=== PATIENT | female | born 1965 | race Caucasian/White ===

== ENCOUNTER 2024-03-13 16:58 | Emergency (ER) | payer OTHER, SELFPAY ==
--- NOTE | 2024-03-13 17:04 | ED.GENMED ---
ED Provider Triage
<Sabrina Ybarra PA-C - Last Filed: 03/13/24 21:06>
-
Patient seen by provider in Triage?: Seen in Triage
Attestation: A medical screening examination has been initiated by a qualified medical provider. Based on the assessment performed at this time, it has been determined that an emergent medical condition may exist and the patient has been informed
that further medical evaluation and possible additional diagnostic testing may be needed.
HPI: 58yoF here with ongoing elevated blood pressure readings x 1 month. C/o nausea, chest discomfort, head pressure, and feeling fatigued today. Took a dose of her sister's valsartan today. No prior history of HTN and not on any antihypertensives.
GENERAL: Alert , in no apparent distress
EYE: No visual abnormalities.
NECK: Trachea midline
ENT: No visible abnormalities.
LUNGS: No acute respiratory distress
NEUROLOGICAL: Alert and oriented
SKIN: Skin intact. No visible changes.
MUSCULOSKELETAL: Moving extremities normally
PSYCH: Normal and appropriate interaction.
This is a medical evaluation conducted in person to initiate diagnostic evaluation and provide initial therapeutics. Please see further documentation by the treating clinician.
Cardiac labs and EKG ordered.
History of Present Illness
<Sabrina Ybarra PA-C - Last Filed: 03/13/24 21:06>
General
Chief Complaint: Chest Pain
Time Seen by Provider: 03/13/24 18:58
<Martita Sarmiento NP - Last Filed: 03/15/24 22:46>
General
Source: patient
Exam Limitations: none
Nursing documentation reviewed up to this point in time: agreed with
History of Present Illness
History of Present Illness:
Patient to ED wtih complaint of chest pain, elevated BP readings, weakness. History of tevin blood pressure. Denies fever/chills, lrecent illness. No SOB. No prior history of same
Past History
<Martita Sarmiento NP - Last Filed: 03/15/24 22:46>
Past History
ED Past Medical History: HTN and Hypothyroidism
Review of Systems
<Martita Sarmiento NP - Last Filed: 03/15/24 22:46>
Review of Systems
Allergies reviewed?: Yes
All Other Systems: ROS reviewed and negative except as documented in HPI and ROS
Constitutional: Reports no symptoms
EENT: Reports no symptoms
Respiratory: Reports no symptoms
Cardiac: Reports other (Elevated BP readings)
ABD/GI: Reports no symptoms
: Reports no symptoms
Musculoskeletal: Reports no symptoms
Skin: Reports no symptoms
Neurological: Reports weakness
Psychiatric: Reports no symptoms
Phy Exam
<Martita Sarmiento NP - Last Filed: 03/15/24 22:46>
General Physical Exam
General Presentation: well appearing and no apparent distress
General age: appears stated age
General Skin: warm and dry
General Habitus: normal
General Mental: alert
Cardiovascular Exam
Cardiovascular Exam: regular rate/rhythm and no edema
Pulmonary Exam
Pulmonary Exam: lungs clear and no respiratory distress
Musculoskeletal Exam
Musculoskeletal Exam: full ROM and neuro vasc intact
Skin Exam
Skin Exam: normal color, warm/dry and no rash
Psychiatric Exam
Psychiatric Exam: normal mood/affect
Scores
<Martita Sarmiento NP - Last Filed: 03/15/24 22:46>
Heart Score for Chest Pain Patients
STEMI patient?: No
History: Slightly or Non-Suspicious
ECG: Normal
Age: >45 - <65 years
Risk Factors: 1 or 2 Risk Factors
Troponin: </= Normal Limit
Heart Score for Chest Pain Patients: 2
Heart Score Risk: 2.5% MACE over next 6 weeks
Course
<Sabrina Ybarra PA-C - Last Filed: 03/13/24 21:06>
Orders/Labs/Results
Orders:
Orders
03/13/24 16:59
EKG [Electrocardiogram (*1)] Urgent
Reason for Study: Chest Pain
EKG- Treatment ONCE
03/13/24 17:22
Complete Blood Count/With Diff Urgent
Comprehensive Metabolic Panel Urgent
TSH Reflex To Free T4 Urgent
Comment: AD ON
Troponin I Urgent
03/13/24 19:05
Add On- LAB Urgent
Tests Added?: TSH reflex free T4
Abnormal Lab Results
03/13/24
17:22
MCHC 32.6 L g/dL
(33.0-37.0)
Abs Immat Gran (auto) 0.1 H 10^3/uL
(0-0.05)
Absolute Neuts (auto) 6.9 H 10^3/uL
(1.4-6.5)
Immature Gran % 0.7 H %
(0-0.5)
Neutrophils % 75.6 H %
(42.2-75.2)
Lymphocytes % 18.2 L %
(20.5-51.1)
Creatinine 0.5 L mg/dL
(0.6-1.0)
03/13/24 17:22
03/13/24 17:22
Vital Signs
Initial and Last Documented VS:
Initial Vital Signs
Temp Pulse Resp BP Pulse Ox
97.6 F 89 16 181/128 99
03/13/24 17:06 03/13/24 17:06 03/13/24 17:06 03/13/24 17:06 03/13/24 17:06
Last Documented Vital Signs
Temp Pulse Resp BP Pulse Ox
97.6 F 74 16 146/94 96
03/13/24 17:06 03/13/24 20:15 03/13/24 20:15 03/13/24 20:15 03/13/24 20:15
<Martita Sarmiento NP - Last Filed: 03/15/24 22:46>
Orders/Labs/Results
Orders:
Orders
03/13/24 16:59
EKG [Electrocardiogram (*1)] Urgent
Reason for Study: Chest Pain
EKG- Treatment ONCE
03/13/24 17:22
Complete Blood Count/With Diff Urgent
Comprehensive Metabolic Panel Urgent
TSH Reflex To Free T4 Urgent
Comment: AD ON
Troponin I Urgent
03/13/24 19:05
Add On- LAB Urgent
Tests Added?: TSH reflex free T4
Abnormal Lab Results
03/13/24
17:22
MCHC 32.6 L g/dL
(33.0-37.0)
Abs Immat Gran (auto) 0.1 H 10^3/uL
(0-0.05)
Absolute Neuts (auto) 6.9 H 10^3/uL
(1.4-6.5)
Immature Gran % 0.7 H %
(0-0.5)
Neutrophils % 75.6 H %
(42.2-75.2)
Lymphocytes % 18.2 L %
(20.5-51.1)
Creatinine 0.5 L mg/dL
(0.6-1.0)
03/13/24 17:22
03/13/24 17:22
Vital Signs
Initial and Last Documented VS:
Initial Vital Signs
Temp Pulse Resp BP Pulse Ox
97.6 F 89 16 181/128 99
03/13/24 17:06 03/13/24 17:06 03/13/24 17:06 03/13/24 17:06 03/13/24 17:06
Last Documented Vital Signs
Temp Pulse Resp BP Pulse Ox
97.6 F 74 16 146/94 96
03/13/24 17:06 03/13/24 20:15 03/13/24 20:15 03/13/24 20:15 03/13/24 20:15
<Martita Sarmiento NP - Last Filed: 03/15/24 22:46>
*Critical Care Note
Total Time (30-74mins, 75-104mins- exclusive of procedures): Not Applicable
ED Attending Note
<Sabrina Ybarra PA-C - Last Filed: 03/13/24 21:06>
-
Portions of this chart may have been created with voice recognition software.� Occasional wrong word or��sound alike� substitutions may have occurred due to the inherent limitations of voice recognition software.
Discharge Plan
Departure
Patient Disposition: Home (Routine Discharge)
Date of Disposition: 03/13/24
Time of Disposition: 20:23
Patient with high blood pressure during this ER visit?: Yes
Condition: Good
Discharge Problem:
Elevated blood pressure reading
Instructions: High blood pressure - ED discharge instructions
Prescriptions:
New
lisinopril 5 mg tablet
5 mg PO DAILY Qty: 14 0RF
No Action
levothyroxine 25 mcg Tablet
25 mcg PO DAILY
prednisone 1 mg Tablet
9 mg PO DAILY
celecoxib [Celebrex] 100 mg Capsule
200 mg PO BID
Simponi 50 mg/0.5 mL Pen Injector
50 mg SC [id number]
Referrals:
Lisa Sutton MD [Family Provider] - Keep scheduled appt
Interventions
Interventions:
*Risk Screen - Suicide Last Done: 03/13/24 17:06
*General Assessment Last Done: 03/13/24 17:06
*Neglect/Abuse Screening Last Done: 03/13/24 17:06
ED- Fall Risk Assessment Last Done: 03/13/24 20:38
*ED COVID-19 Vaccine History Last Done: 03/13/24 17:06
*Nursing Disposition Last Done: 03/13/24 20:38
ED- Cardiac Assessment Last Done: 03/13/24 19:45
Discharge Date and Time
Discharge Date/Time: 03/13/24 20:38
Print Language: SLOVAK
[2024-03-13 17:06] VITALS: BP 181/128
[2024-03-13 17:29] LABS: % Basophils 0.1 % (0-2); % Eosinophils 1.2 % (0-6); % Immature Granulocytes 0.7 % (0-0.5); % Lymphocytes 18.2 % (20.5-51.1); % Monocytes 4.2 % (1.7-9.3); % Neutrophils 75.6 % (42.2-75.2); Absolute Eosinophils 0.1 10^3/uL (0-0.7); Absolute Immature Granulocytes 0.1 10^3/uL (0-0.05); Absolute Lymphocytes 1.7 10^3/uL (1.2-3.4); Absolute Monocytes 0.4 10^3/uL (0.1-0.6); Absolute Neutrophils 6.9 10^3/uL (1.4-6.5); Mean Corp Hgb Conc. 32.6 g/dL (33.0-37.0); Mean Corpuscular Volume 89.2 fL (81.0-99.0); Mean Platelet Volume 9.3 fL (7.4-10.4); Nucleated Red Blood Cells % 0 %; Platelet Count 274 10^3/uL (130-400); Red Blood Cell Count 4.82 10^6/uL (4.20-5.40); Red Cell Dist. Width 13.2 % (11.5-14.5); White Blood Cell Count 9.1 10^3/uL (4.8-10.8)
[2024-03-13 17:47] LABS: ALT (SGPT) 20 U/L (0-35); AST (SGOT) 27 U/L (14-36); Albumin 4.3 g/dl (3.5-5.0); Alkaline Phosphatase 64 U/L (38-126); Blood Urea Nitrogen 15 mg/dl (7-17); Calcium 9.4 mg/dl (8.4-10.2); Carbon Dioxide 28 mmol/L (22-30); Chloride 104 mmol/L (98-107); Glucose 97 mg/dl (70-99); Potassium 4.1 mmol/L (3.5-5.1); Sodium 140 mmol/L (135-145); Total Bilirubin 0.8 mg/dl (0.2-1.3); Total Protein 7.9 g/dl (6.3-8.2); eGFR > 60.00
[2024-03-13 17:50] LABS: Troponin I < 0.012 ng/ml
[2024-03-13 19:17] VITALS: BMI 26.8
[2024-03-13 19:20] VITALS: BP 150/102
[2024-03-13 19:36] VITALS: BP 144/84
[2024-03-13 20:00] VITALS: BP 158/109
[2024-03-13 20:15] VITALS: BP 146/94
[2024-03-13 20:18] LABS: TSH Reflex To Free T4 3.22 uIU/ml (0.47-4.68)
== END 2024-03-13 20:38 | disposition home or self-care (01) ==
LOC: EMR 16:58
PROVIDERS: Physician Assistant; EMERGENCY PHYSICIAN Emergency Medicine; FAMILY PHYSICIAN Student in an Organized Health Care Education/Training Program
DX: I10 Essential (primary) hypertension (principal)
CPT/HCPCS: 99284; 80053; 84443; 84484; 85025; 93005

== ENCOUNTER 2024-03-31 17:07 | Inpatient (IN) | payer OTHER, SELFPAY ==
[2024-03-31] VITALS (7 sets, daily range): BP systolic 133–170; BP diastolic 91–109; BMI 25.8; BMI 25.6
[2024-03-31 13:27] LABS: % Basophils 0.7 % (0-2); % Eosinophils 1.1 % (0-6); % Immature Granulocytes 3.8 % (0-0.5); % Lymphocytes 14.8 % (20.5-51.1); % Monocytes 5.5 % (1.7-9.3); % Neutrophils 74.1 % (42.2-75.2); Absolute Basophils 0.1 10^3/uL (0-0.2); Absolute Eosinophils 0.2 10^3/uL (0-0.7); Absolute Immature Granulocytes 0.6 10^3/uL (0-0.05); Absolute Lymphocytes 2.3 10^3/uL (1.2-3.4); Absolute Monocytes 0.8 10^3/uL (0.1-0.6); Absolute Neutrophils 11.3 10^3/uL (1.4-6.5); Hematocrit 43.8 % (37.0-47.0); Hemoglobin 14.5 g/dL (12.0-16.0); Mean Corp Hgb Conc. 33.1 g/dL (33.0-37.0); Mean Corpuscular Hgb 28.8 pg (27.0-31.0); Mean Corpuscular Volume 86.9 fL (81.0-99.0); Mean Platelet Volume 8.9 fL (7.4-10.4); Nucleated Red Blood Cells % 0 %; Platelet Count 321 10^3/uL (130-400); Red Blood Cell Count 5.04 10^6/uL (4.20-5.40); Red Cell Dist. Width 13.2 % (11.5-14.5); White Blood Cell Count 15.2 10^3/uL (4.8-10.8)
[2024-03-31 13:40] LABS: ALT (SGPT) 15 U/L (0-35); AST (SGOT) 22 U/L (14-36); Albumin 3.9 g/dl (3.5-5.0); Alkaline Phosphatase 81 U/L (38-126); Blood Urea Nitrogen 13 mg/dl (7-17); Calcium 9.1 mg/dl (8.4-10.2); Carbon Dioxide 26 mmol/L (22-30); Chloride 97 mmol/L (98-107); Glucose 81 mg/dl (70-99); Potassium 3.6 mmol/L (3.5-5.1); Sodium 136 mmol/L (135-145); Total Bilirubin 0.5 mg/dl (0.2-1.3); Total Protein 7.5 g/dl (6.3-8.2); eGFR > 60.00
[2024-03-31 13:43] LABS: COVID-19 Antigen Negative (Negative)
[2024-03-31] MEDS: NSS 1000 IV ×3 (14:41→17:34)
[2024-03-31] MEDS: TYLENOL 1000 MG PO (14:41)
--- NOTE | 2024-03-31 14:43 | ED.GENMED ---
History of Present Illness
<Luis Angel Palma PA-C - Last Filed: 03/31/24 16:19>
General
Chief Complaint: Cold/Flu/URI Symptoms
Source: patient
Time Seen by Provider: 03/31/24 14:01
History of Present Illness
History of Present Illness:
58-year-old female with past medical history of hypothyroidism and psoriasis presenting to the emergency department for evaluation of upper respiratory symptoms, sinus congestion, cough and continued fevers with symptoms starting on March 20.
Patient started Augmentin on March 26 and continues to states she feels ill endorsing continued cough, palpitations and sinus congestion. Patient's main concern is that she has me rest as she had been on long-term prednisone use which was
recently discontinued for a medication called Simponi which she took last month and was due to receive the next injection today but due to feeling ill came to the emergency department instead. Patient had a Tmax of 101 earlier today. No known sick
contacts or recent travel. She denies any urinary symptoms, bowel changes, abdominal pain, chest pain, shortness of breath.
Past History
<Luis Angel Palma PA-C - Last Filed: 03/31/24 16:19>
Past History
ED Past Medical History: HTN, Hypothyroidism and Other (Psoriasis)
ED Past Surgical History: Orthopedic and Other
Social History
Tobacco: Non-smoker
Alcohol: None
Drug: None
Personal:
Living: with family
Review of Systems
<Luis Angel Palma PA-C - Last Filed: 03/31/24 16:19>
Review of Systems
All Other Systems: ROS reviewed and negative except as documented in HPI and ROS
Phy Exam
<Luis Angel Palma PA-C - Last Filed: 03/31/24 16:19>
Physical Exam
Physical Exam:
GENERAL: Alert , in no apparent distress, ill-appearing but nontoxic
HEAD: Normocephalic atraumatic
EYE: conjunctiva mildly injected on the right
NECK: Supple, no significant adenopathy.
ENT: o/p clr, mmm. TMs clear bilateral, mild tonsillar erythema but no exudates or edema
CARDIAC: Tachycardic rate, normal rhythm
LUNGS: Clear breath sounds bilaterally, no acute respiratory distress, no wheezes/rales/rhonchi
NEUROLOGICAL: Alert and oriented
SKIN: Warm and dry, skin intact.
MUSCULOSKELETAL: well perfused.
PSYCH: Normal and appropriate interaction.
Scores
<Luis Angel Palma PA-C - Last Filed: 03/31/24 16:19>
Heart Failure Risk
Heart Failure Risk Score: Not Applicable
Heart Score for Chest Pain Patients
STEMI patient?: Not applicable
Withdrawal Assessment of Alcohol
Withdrawal Assessment Completed?: Not applicable
Sepsis
<Luis Angel Palma PA-C - Last Filed: 03/31/24 16:19>
Sepsis Screening
Sepsis Assessment: Sepsis
Sepsis Screen
Sepsis Screen: Sepsis
Date: 03/31/24
Time: 16:19
Course
<Luis Angel Palma PA-C - Last Filed: 03/31/24 16:19>
Orders/Labs/Results
Orders:
Orders
03/31/24 12:41
Electrocardiogram (*1) Urgent
Reason for Study: Palpitations
EKG- Treatment ONCE
03/31/24 13:11
COVID-19 Antigen Urgent
Source: Nasal Swab
Complete Blood Count/With Diff Urgent
Comprehensive Metabolic Panel Urgent
Influenza A+B Rapid Molecular Urgent
JESUS Source: Nasal Swab
Specimen Description:
03/31/24 14:19
CT Chest PE Study Urgent
Comment:
Reason For Exam: fever, cough x 11 days, immunosupressed
0.9% Sodium Chloride 1000 ml [Nss] 1,000 ml IV BOLUS
Acetaminophen [Tylenol] 1,000 mg PO NOW STA
03/31/24 14:45
D-Dimer Urgent
Influenza A+B Rapid Molecular Routine
JESUS Source: [facility]
Specimen Description:
03/31/24 16:02
0.9% Sodium Chloride 1000 ml [Nss] 1,000 ml IV BOLUS
Piperacillin/Tazo 3.375 Gram [Zosyn] 3.375 gram in 50 ml IV NOW
03/31/24 16:15
Lactic Acid Q4H
Comment: CANCEL 2nd LACTIC ACID IF 1st LACTIC ACID IS LESS THAN 2
Blood Culture Q30M
JESUS Source: Blood/Venous
Specimen Description:
03/31/24 16:45
Blood Culture Q30M
JESUS Source: Blood/Venous
Specimen Description:
03/31/24 20:15
Lactic Acid Q4H
Comment: CANCEL 2nd LACTIC ACID IF 1st LACTIC ACID IS LESS THAN 2
Abnormal Lab Results
03/31/24 03/31/24
13:11 14:45
WBC 15.2 H 10^3/uL
(4.8-10.8)
Abs Immat Gran (auto) 0.6 H 10^3/uL
(0-0.05)
Absolute Neuts (auto) 11.3 H 10^3/uL
(1.4-6.5)
Absolute Monos (auto) 0.8 H 10^3/uL
(0.1-0.6)
Immature Gran % 3.8 H %
(0-0.5)
Lymphocytes % 14.8 L %
(20.5-51.1)
D-Dimer 12.10 H ug/mlFEU
(0.00-0.50)
Chloride 97 L mmol/L
(98-107)
03/31/24 13:11
03/31/24 13:11
Vital Signs
Initial and Last Documented VS:
Initial Vital Signs
Temp Pulse Resp BP Pulse Ox
98.5 F 134 16 170/109 99
03/31/24 13:03 03/31/24 13:03 03/31/24 13:03 03/31/24 13:03 03/31/24 13:03
Last Documented Vital Signs
Temp Pulse Resp BP Pulse Ox
98.5 F 101 18 136/92 97
03/31/24 13:03 03/31/24 16:00 03/31/24 15:45 03/31/24 16:00 03/31/24 15:45
Forge Press Operator consulted with Physician
Forge Press Operator consulted with physician?: Yes
Name of Physician Consulted: Ravi
<Josh Rodrigues MD - Last Filed: 03/31/24 16:03>
Orders/Labs/Results
Orders:
Orders
03/31/24 12:41
Electrocardiogram (*1) Urgent
Reason for Study: Palpitations
EKG- Treatment ONCE
03/31/24 13:11
COVID-19 Antigen Urgent
Source: Nasal Swab
Complete Blood Count/With Diff Urgent
Comprehensive Metabolic Panel Urgent
Influenza A+B Rapid Molecular Urgent
JESUS Source: Nasal Swab
Specimen Description:
03/31/24 14:19
CT Chest PE Study Urgent
Comment:
Reason For Exam: fever, cough x 11 days, immunosupressed
0.9% Sodium Chloride 1000 ml [Nss] 1,000 ml IV BOLUS
Acetaminophen [Tylenol] 1,000 mg PO NOW STA
03/31/24 14:45
D-Dimer Urgent
Influenza A+B Rapid Molecular Routine
JESUS Source: [facility]AB
Specimen Description:
03/31/24 16:02
0.9% Sodium Chloride 1000 ml [Nss] 1,000 ml IV BOLUS
Piperacillin/Tazo 3.375 Gram [Zosyn] 3.375 gram in 50 ml IV NOW
03/31/24 16:15
Lactic Acid Q4H
Comment: CANCEL 2nd LACTIC ACID IF 1st LACTIC ACID IS LESS THAN 2
Blood Culture Q30M
JESUS Source: Blood/Venous
Specimen Description:
03/31/24 16:45
Blood Culture Q30M
JESUS Source: Blood/Venous
Specimen Description:
03/31/24 20:15
Lactic Acid Q4H
Comment: CANCEL 2nd LACTIC ACID IF 1st LACTIC ACID IS LESS THAN 2
Abnormal Lab Results
03/31/24 03/31/24
13:11 14:45
WBC 15.2 H 10^3/uL
(4.8-10.8)
Abs Immat Gran (auto) 0.6 H 10^3/uL
(0-0.05)
Absolute Neuts (auto) 11.3 H 10^3/uL
(1.4-6.5)
Absolute Monos (auto) 0.8 H 10^3/uL
(0.1-0.6)
Immature Gran % 3.8 H %
(0-0.5)
Lymphocytes % 14.8 L %
(20.5-51.1)
D-Dimer 12.10 H ug/mlFEU
(0.00-0.50)
Chloride 97 L mmol/L
(98-107)
03/31/24 13:11
03/31/24 13:11
Vital Signs
Initial and Last Documented VS:
Initial Vital Signs
Temp Pulse Resp BP Pulse Ox
98.5 F 134 16 170/109 99
03/31/24 13:03 03/31/24 13:03 03/31/24 13:03 03/31/24 13:03 03/31/24 13:03
Last Documented Vital Signs
Temp Pulse Resp BP Pulse Ox
98.5 F 101 18 136/92 97
03/31/24 13:03 03/31/24 16:00 03/31/24 15:45 03/31/24 16:00 03/31/24 15:45
<Luis Angel Palma PA-C - Last Filed: 03/31/24 16:19>
MDM/Problems Addressed
Differential Diagnosis Includes:
COVID, flu, pneumonia, PE, sinusitis, otitis media, bacteremia
MDM/Problems Addressed:
58-year-old female presenting to the ER for evaluation of persistent URI-like symptoms that has been ongoing for 11 days. Has been on antibiotics for the last 5 days with no improvement. Afebrile here however did have elevated temperature at home
earlier today. Moderately tachycardic. She is in no acute respiratory distress. Patient is immunosuppressed on Simponi. Labs do reveal a leukocytosis but no bandemia. Chemistry unremarkable. COVID testing was negative and flu test inconclusive
so resent a flu test. Given patient's tachycardia and low-grade fevers combined with persistent symptoms will obtain CT of the chest rule out PE. Disposition pending
Chronic conditions affecting care: Immunosuppressed
Acute Exacerbation and/or Progression of Chronic Illness: Immunosuppressed
<Luis Angel Palma PA-C - Last Filed: 03/31/24 16:19>
*Radiology
Radiology exam reviewed: radiology read reviewed
*Pulse Oximetry
Patient hypoxic: no
*EKG
Heart Rate: 124
Rate: tachycardiac
Rhythm: sinus
Ischemia: other (ST depression V4 through V6)
*Sheet Metal Assembler And Riveter Interpretation
Rate: tachycardiac
Rhythm: sinus
*Critical Care Note
Total Time (30-74mins, 75-104mins- exclusive of procedures): Not Applicable
<Luis Angel Palma PA-C - Last Filed: 03/31/24 16:19>
Patient Management
Discussion with other providers: Hospitalist
Escalation/DeEscalation of care consider admission/obs:
Patient CT without any acute findings. Her labs do reveal a leukocytosis of 15,000 with increased immature granulocytes. CTA of the chest did not show any acute lung pathology. Given patient's persistent symptoms, immunosuppressed state, already
on oral antibiotics and not having any improvement I do feel it would be best served for the patient to be admitted for IV antibiotics and culture trending. Patient in agreement with this plan. Hospitalist team accepts for continued evaluation and
treatment.
ED Attending Note
<Luis Angel Palma PA-C - Last Filed: 03/31/24 16:19>
-
Portions of this chart may have been created with voice recognition software.� Occasional wrong word or��sound alike� substitutions may have occurred due to the inherent limitations of voice recognition software.
<Josh Rodrigues MD - Last Filed: 03/31/24 16:03>
ED Attending Note
Patient seen and examined by attending physician: Yes
I performed the substantive portion of visit, reviewed & personally made and approve the management plan that is documented in note by myself or LISA.: Yes
ED Attending Note:
58-year-old female history immunosuppression from monoclonal antibody therapy for psoriatic arthritis. Presents with ongoing sinus-like symptoms. Nasal congestion discharge fever. No cough no shortness of breath no abdominal pain no vomiting.
Has been on 5 days of Augmentin. Started to feel better but today woke up feeling much worse lethargic fever. Presented tachycardic in the 140s.
Blood pressure stable. Lungs clear and equal. Heart regular tachycardic. Regular rhythm. Abdomen nontender. Warm and dry. No rash. No petechia or purpura. Neck is supple.
Leukocytosis with bandemia. Tachycardic in the 140s and persistent tachycardia 120 after fluids. Failed outpatient treatment. Immunosuppressed. Warrants inpatient management.
Discharge Plan
Departure
Patient Disposition: Admit
Date of Disposition: 03/31/24
Time of Disposition: 16:03
Presentation/result/management discussed w/ accepting MD/DO: Hospitalist
Discharge Problem:
Acute upper respiratory infection, Immunocompromised
Prescriptions:
No Action
levothyroxine 25 mcg Tablet
25 mcg PO DAILY
prednisone 1 mg Tablet
9 mg PO DAILY
celecoxib [Celebrex] 100 mg Capsule
200 mg PO BID
Simponi 50 mg/0.5 mL Pen Injector
50 mg SC [id number]
lisinopril 5 mg tablet
5 mg PO DAILY Qty: 14 0RF
Referrals:
Lisa Sutton MD [Family Provider] -
Interventions
Interventions:
*Risk Screen - Suicide Last Done: 03/31/24 14:20
*General Assessment Last Done: 03/31/24 14:20
*Neglect/Abuse Screening Last Done: 03/31/24 14:20
*ED COVID-19 Vaccine History Last Done: 03/31/24 14:20
ED- Pulmonary Assessment Last Done: 03/31/24 14:20
Discharge Date and Time
Print Language: STATELESS
--- NOTE | 2024-03-31 16:28 | HPS.HSE ---
Family Physician
-
Family Physician: Lisa Sutton MD
Chief Complaint
-
sinus symptoms
History of Present Illness
58-year-old female past medical history of chronic sinusitis sinus surgery in 2017, 2021, hypothyroidism, psoriatic arthritis, hypertension presenting to the emergency room postnasal drip, sore throat, sinus pressure, fevers starting March 20.
She started taking Augmentin on March 26 but continues to have fevers, postnasal drip. She has minimal cough. She occasionally does have chest tightness that comes and goes. She has been having intermittent diarrhea since this time that
started before taking the antibiotic. She has occasional nausea without vomiting. No known sick contacts or recent travel. Denies abdominal pain.
Patient has a history of psoriatic arthritis affecting her knees, wrists, hands and has been on several Biologics without improvement. She has been on prednisone because nothing else has helped. She recently started taking Simponi and had her
first injection a month ago.
Denies smoking or alcohol use.
Medical History
Past Medical History
Past Medical History: Reports Other (chronic sinusitis sinus surgery in 2017, 2021, hypothyroidism, psoriatic arthritis, hypertension)
Past Surgical History: Reports Other (, breast augmentation, laminectomy, sinus surgeries)
Social History
Tobacco: Non-smoker
Alcohol: None
Drug: None
Family History
Family History: Not pertinent
Allergies / Home Medications
Allergies reflects when Allergies were last updated in [facility].
Home Medications with original date entered in [facility]
Allergy/Medication List:
Allergies
Allergy/AdvReac Type Severity Reaction Status Date / Time
ferric carboxymaltose Allergy Anaphylaxis Verified 03/31/24 13:06
[From Injectafer]
Home Medications
celecoxib 100 mg capsule (Celebrex) 100 mg PO BID 03/13/24
lisinopril 5 mg tablet 5 mg PO DAILY #14 tabs 03/13/24
[place] 2 cap PO TID 03/31/24
Megasporebiotic 1 cap PO QPM 03/31/24
Saccharomyces boulardii 250 mg capsule 250 mg PO BID 03/31/24
amoxicillin 500 mg-potassium clavulanate 125 mg tablet 1 tab PO BID 03/31/24
prednisone 5 mg tablet 5 mg PO BID 03/31/24
quercetin 500 mg capsule 500 mg PO DAILY 03/31/24
thyroid (pork) 30 mg tablet (Olivia Thyroid) 30 mg PO DAILY 03/31/24
Review of Systems
-
History Source: Patient
A 12 point ROS was completed and negative except as noted: Yes
Constitutional: Reports No Symptoms
EENT: Reports See HPI
Respiratory: Reports No Symptoms
Cardiac: Reports No Symptoms
Abdomen/GI: Reports No Symptoms
: Reports No Symptoms
Musculoskeletal: Reports No Symptoms
Skin: Reports No Symptoms
Neurological: Reports No Symptoms
Endocrine: Reports No Symptoms
Hematologic/Lymphatic: Reports No Symptoms
Psych: Reports No Symptoms
Physical Exam
Vital Signs
Vital Signs
Temp Pulse Resp BP Pulse Ox
98.5 F 101 18 136/92 97
03/31/24 13:03 03/31/24 16:00 03/31/24 15:45 03/31/24 16:00 03/31/24 15:45
Physical Exam
General: Well Developed, Well Nourished and No Apparent Distress
HEENT: NormoCephalic, Moist mucous membranes and Atraumatic
Respiratory: Clear
Cardiac: S1/S2 and Regular Rhythm; No Murmur or Rub
GI: Soft, Non Tender, Non Distended and Normal Bowel Sounds; No Organomegaly
Rectal: Deferred by Provider
Musculoskeletal: No Clubbing, No Cyanosis and No Edema
Skin: No Rash
Neuro: Nonfocal/grossly intact
Laboratory Results
-
03/31/24 13:11
12/31/24 13:11
Laboratory Results
Total Bilirubin 0.5 mg/dl (0.2-1.3) 03/31/24 13:11
AST 22 U/L (14-36) 03/31/24 13:11
ALT 15 U/L (0-35) 03/31/24 13:11
Alkaline Phosphatase 81 U/L (38-126) 03/31/24 13:11
Data Reviewed
-
Lab Data: Labs Reviewed by me
Old Records: Reviewed
Impression/Plan
-
IMPRESSION:
PLAN:
# Sepsis (fever, tachycardia, leukocytosis ) secondary to persistent acute sinusitis versus URI in immunocompromised patient
# History of chronic sinusitis status post sinus surgeries x 2
-D-dimer of 12
-CT PE shows no pulmonary embolism, minimal pleural-parenchymal airspace disease likely scarring at the lower lateral margin of the left major fissure
-Check blood cultures
-Check CT scan facial bones to evaluate for sinusitis complication
-IV fluids
-Zosyn
# Intermittent chest tightness
-EKG shows sinus tachycardia
-Check troponin
# Intermittent diarrhea
-Continue to monitor
-Started before antibiotics
Psoriatic arthritis
-Took Simponi a month ago
-On chronic steroids
-Continue prednisone 5 mg twice daily
-Continue Celebrex
Hypothyroidism
-Continue levothyroxine
Essential hypertension
-Continue lisinopril
Full code
DVT prophylaxis�heparin
Regular diet
[2024-03-31 17:27] LABS: Lactic Acid 0.6 mmol/L (0.7-2.0)
[2024-03-31] MEDS: ZOSYN 50 IV ×2 (17:38→23:53)
[2024-03-31 17:39] LABS: Troponin I < 0.012 ng/ml
--- NOTE | 2024-03-31 21:00 | PTCARENOTE ---
Pt arrived to room 436-01. Pt ambulated from stretcher to bed. Pt AAOx3, VSS. Pt oriented to room, call ferrell placed within reach.
[2024-03-31] MEDS: DELTASONE 5 MG PO (22:31)
[2024-03-31] MEDS: CELEBREX 100 MG PO (22:31)
[2024-03-31] MEDS: FLORASTOR 250 MG PO (22:31)
[2024-04-01 03:33] VITALS: BP 134/83
[2024-04-01 05:20] LABS: % Basophils 0.7 % (0-2); % Eosinophils 0.5 % (0-6); % Immature Granulocytes 4.5 % (0-0.5); % Lymphocytes 11.3 % (20.5-51.1); % Monocytes 4.9 % (1.7-9.3); % Neutrophils 78.1 % (42.2-75.2); Absolute Basophils 0.1 10^3/uL (0-0.2); Absolute Eosinophils 0.1 10^3/uL (0-0.7); Absolute Immature Granulocytes 0.5 10^3/uL (0-0.05); Absolute Lymphocytes 1.3 10^3/uL (1.2-3.4); Absolute Monocytes 0.6 10^3/uL (0.1-0.6); Absolute Neutrophils 8.8 10^3/uL (1.4-6.5); Hematocrit 38.7 % (37.0-47.0); Hemoglobin 12.8 g/dL (12.0-16.0); Mean Corp Hgb Conc. 33.1 g/dL (33.0-37.0); Mean Corpuscular Hgb 28.8 pg (27.0-31.0); Mean Corpuscular Volume 87.2 fL (81.0-99.0); Mean Platelet Volume 9.4 fL (7.4-10.4); Nucleated Red Blood Cells % 0 %; Platelet Count 270 10^3/uL (130-400); Red Blood Cell Count 4.44 10^6/uL (4.20-5.40); Red Cell Dist. Width 13.2 % (11.5-14.5); White Blood Cell Count 11.2 10^3/uL (4.8-10.8)
[2024-04-01] MEDS: NSS 1000 IV ×2 (05:31→16:31)
[2024-04-01] MEDS: ARMOUR THYROID 30 MG PO (05:32)
[2024-04-01] MEDS: ZOSYN 50 IV ×4 (05:32→23:52)
[2024-04-01 05:49] LABS: ALT (SGPT) 14 U/L (0-35); AST (SGOT) 21 U/L (14-36); Albumin 3.1 g/dl (3.5-5.0); Alkaline Phosphatase 69 U/L (38-126); Blood Urea Nitrogen 11 mg/dl (7-17); Calcium 8.6 mg/dl (8.4-10.2); Carbon Dioxide 25 mmol/L (22-30); Chloride 105 mmol/L (98-107); Estimated Creatinine Clearance 94 ml/min; Glucose 87 mg/dl (70-99); Sodium 139 mmol/L (135-145); Total Bilirubin 0.4 mg/dl (0.2-1.3); Total Protein 6.3 g/dl (6.3-8.2); eGFR > 60.00
[2024-04-01 07:30] VITALS: BP 154/97
[2024-04-01] MEDS: DELTASONE 5 MG PO ×2 (08:58→20:06)
[2024-04-01] MEDS: FLORASTOR 250 MG PO ×2 (08:58→20:06)
[2024-04-01] MEDS: ZESTRIL 5 MG PO (08:58)
[2024-04-01] MEDS: CELEBREX 100 MG PO ×2 (08:59→20:06)
--- NOTE | 2024-04-01 10:15 | W.PN.HOSP.TC ---
Today's Communication/Plan
-
Continue AB
Echo TOMORROW
Assessment / Plan
Assessment / Plan
58-year-old female presented to the hospital with sinus symptoms. She has been having a lot of postnasal drip sore throat sinus pressure fevers started on the . She has been taking Augmentin 5 mg twice daily without Mutch relief. She follows
up with Dr. Torres from ENT
On examination awake alert not in any distress
Cardiovascular system S1-S2 appreciated
Chest clear to auscultation
Abdomen soft and nontender
No sinus tenderness noted on exam
CT of the facial bones-severe acute sinusitis throughout frontal sinuses and ethmoid air cells. Moderate bilateral maxillary sinusitis. Mild sphenoid sinusitis. Previous left medial maxillary antrostomy. Severe bilateral osteoarthritis of the
TMJ. Mild bilateral cervical lymphadenopathy.
# Acute sinusitis
Immunocompromised patient
History of chronic sinusitis with 2 sinus surgeries in the past
Placed on IV Zosyn
Sputum cultures with possible
# Intermittent chest tightness
EKG possible left atrial enlargement T inversion in inferior leads
Routine echo
No PE on CT
Troponin- negative add a PPI. Patient is on prednisone
May need H2 blockers for discharge
And Celebrex and not on any GI protection
# Hypothyroidism-continue [place] Thyroid
# Psoriatic arthritis
On prednisone 5 mg twice daily and Simponi as OP
# History of migraines
# Hypertension-continue lisinopril
# DVT prophylaxis-add Lovenox
# Full CODE
D/W RN
Anticipated Discharge: 24 - 48 hours
Subjective/Interval History
-
Date of Service: April 01, 2024
Objective Data
-
Labs:
Laboratory Results
04/01/24
04:13
WBC 11.2 H
Hgb 12.8
Hct 38.7
Plt Count 270
Sodium 139
Potassium 4.0
Chloride 105
Carbon Dioxide 25
BUN 11
Creatinine 0.5 L
Glucose 87
Calcium 8.6
Total Bilirubin 0.4
AST 21
ALT 14
Alkaline Phosphatase 69
Vital Signs:
Vital Signs
Temp Pulse Resp BP Pulse Ox
97.7 F 95 18 154/97 98
04/01/24 07:30 04/01/24 07:30 04/01/24 07:30 04/01/24 07:30 04/01/24 07:30
I&O
03/31/24 04/01/24 04/02/24
06:59 06:59 06:59
Intake Total 240 / 240
Balance 240 / 240
--- NOTE | 2024-04-01 10:23 | CM ---
CM met with pt at bedside.
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
Resides with daughter in a 2SH with bedroom on first floor. [facility]. Daughter will provide transport at tx.
No HC or SNF history.
PCP is Lisa Sutton and pharmacy is [facility] on [facility].
Discharge dispo home no needs. CM to follow and watch for needs.
[2024-04-01 15:00] VITALS: BP 140/98
[2024-04-01] MEDS: AYR SALINE NASAL GEL 1 APPLIC NASAL (20:08)
[2024-04-01 22:49] VITALS: BP 125/89
[2024-04-02] MEDS: AYR SALINE NASAL GEL 1 APPLIC NASAL ×2 (04:50→11:59)
[2024-04-02] MEDS: ZOSYN 50 IV ×2 (05:00→12:00)
[2024-04-02] MEDS: ARMOUR THYROID 30 MG PO (05:00)
[2024-04-02 07:55] VITALS: BP 161/108
[2024-04-02] MEDS: ZESTRIL 5 MG PO ×2 (08:09→15:57)
[2024-04-02] MEDS: CELEBREX 100 MG PO (08:09)
[2024-04-02 09:21] VITALS: BP 158/99
[2024-04-02] MEDS: FLORASTOR 250 MG PO (09:41)
[2024-04-02] MEDS: DELTASONE 5 MG PO (09:41)
[2024-04-02 09:52] LABS: Blood Urea Nitrogen 11 mg/dl (7-17); Calcium 9.1 mg/dl (8.4-10.2); Carbon Dioxide 29 mmol/L (22-30); Chloride 102 mmol/L (98-107); Estimated Creatinine Clearance 94 ml/min; Glucose 76 mg/dl (70-99); Potassium 4.1 mmol/L (3.5-5.1); Sodium 138 mmol/L (135-145); eGFR > 60.00
[2024-04-02 11:23] VITALS: BP 169/106
[2024-04-02] MEDS: TYLENOL 650 MG PO (12:09)
--- NOTE | 2024-04-02 12:42 | CM ---
Chart reviewed and plan is to home no needs when stable.
Plan; Home no needs.
--- NOTE | 2024-04-02 14:29 | CON.MD ---
Consultation - Medical
-
Pt seen for acute exacerbation of chronic sinusitis.
She is feeling much better.
Full consult dictated.
From our point of view she is stable for discharge on about one more week of PO antibiotics.
She understands she is to f/u with Dr. Torres next week.
[2024-04-02 15:04] VITALS: BP 165/113
--- NOTE | 2024-04-02 15:09 | W.PN.HOSP.TC ---
Addendum entered and electronically signed by Eamon Norman MD 04/02/24 16:30:
Dictation- [id number]
Addendum entered and electronically signed by Eamon Norman MD 04/02/24 15:16:
increase Lisinopril
Original Note:
Today's Communication/Plan
-
Discharge
Assessment / Plan
Assessment / Plan
58-year-old female presented to the hospital with sinus symptoms. She has been having a lot of postnasal drip sore throat sinus pressure fevers started on the . She has been taking Augmentin 5 mg twice daily without Mutch relief. She follows
up with Dr. Torres from ENT
On examination awake alert not in any distress
Cardiovascular system S1-S2 appreciated
Chest clear to auscultation
Abdomen soft and nontender
CT of the facial bones-severe acute sinusitis throughout frontal sinuses and ethmoid air cells. Moderate bilateral maxillary sinusitis. Mild sphenoid sinusitis. Previous left medial maxillary antrostomy. Severe bilateral osteoarthritis of the
TMJ. Mild bilateral cervical lymphadenopathy.
# Acute sinusitis
Immunocompromised patient
History of chronic sinusitis with 2 sinus surgeries in the past
Placed on IV Zosyn, changed to Augmentin 875 twice daily for 1 more week at discharge
White count better
ENT evaluation appreciated.
# Intermittent chest tightness
EKG possible left atrial enlargement T inversion in inferior leads
Routine echo- Stable
No PE on CT
Troponin- negative add a PPI. Patient is on prednisone
May need H2 blockers for discharge
And Celebrex and not on any GI protection
# Hypothyroidism-continue [place] Thyroid
# Psoriatic arthritis
On prednisone 5 mg twice daily and Simponi as OP
# History of migraines
# Hypertension-continue lisinopril
# DVT prophylaxis-add Lovenox
# Full CODE
D/W RN
D/W ENT
More than 30 minutes spent in discharge including
Final examination of the patient
Summarizing hospital stay
Instructions for continuing care to all relevant caregivers
Preparation of discharge records, prescriptions, and referral forms
Total time spent (in minutes): 33 min
Anticipated Discharge: Today
Subjective/Interval History
-
Date of Service: April 02, 2024
Objective Data
-
Labs:
Laboratory Results
04/02/24
08:26
Sodium 138
Potassium 4.1
Chloride 102
Carbon Dioxide 29
BUN 11
Creatinine 0.4 L
Glucose 76
Calcium 9.1
Vital Signs:
Vital Signs
Temp Pulse Resp BP Pulse Ox
98.2 F 99 18 165/113 97
04/02/24 15:04 04/02/24 15:04 04/02/24 15:04 04/02/24 15:04 04/02/24 15:04
I&O
04/01/24 04/02/24 04/03/24
06:59 06:59 06:59
Intake Total 240 / 240 1440 / 1440
Balance 240 / 240 1440 / 1440
--- NOTE | 2024-04-02 16:11 | PN.CDI ---
Addendum entered and electronically signed by Eamon Norman MD 04/03/24 07:32:
Documentation is complete at this time.
Original Note:
CDI
- -
CDI:
Physician Documentation Request
Admit Date: 03/31/24 17:07
Dear Doctor Emerson,
The diagnosis of sepsis was documented on 03/31 in H&P but is not consistently noted in subsequent documentation.
'Sepsis (fever, tachycardia, leukocytosis ) secondary to persistent acute sinusitis versus URI in immunocompromised patient'
Patient presented to ED for evaluation of upper respiratory symptoms, sinus congestion, cough and continued fevers with symptoms starting on March 20
Please clarify the following:
____ - Sepsis was present on admission
____ - Sepsis was ruled out
____ - Other
Use of terms such as suspected, likely, concern for, or probable (associated with a specific diagnosis that is being evaluated, monitored, or treated as if it exists) are acceptable and can be coded in the inpatient setting, when documented at the
time of discharge.
Thank you,
Ewa Pickett RN, BSN
CDI Specialist
tiger text
Please use your independent medical judgment in providing your response.
--- NOTE | 2024-04-02 16:29 | W.DS.TRANS ---
DC Summary - Date Night Sitter
-
Discharge Instructions:
Discharge Diagnosis/Procedures Acute sinusitis
Hypothyroidism
Psoriatic arthritis
Migraines
Hypertension
Diet 2 Gram Sodium
Activity As tolerated
Driving Restrictions As prior to admission
Instructions:
Stand-Alone Forms:
Changes to Home Medications: Yes
Discharge Medications:
DC Medications w/original date entered in [employer]
celecoxib 100 mg capsule (Celebrex) 100 mg PO BID Pain 03/13/24
Saccharomyces boulardii 250 mg capsule 250 mg PO BID Supplement 03/31/24
prednisone 5 mg tablet 5 mg PO BID Anti-Inflammatory 03/31/24
quercetin 500 mg capsule 500 mg PO DAILY Supplement 03/31/24
thyroid (pork) 30 mg tablet ([place] Thyroid) 30 mg PO DAILY Thyroid 03/31/24
acetaminophen 325 mg tablet 650 mg (2 x 325 mg) PO Q4HPRN PRN pain #0 tabs 04/02/24
amoxicillin 875 mg-potassium clavulanate 125 mg tablet 1 tab PO BID ent #14 tabs 04/02/24
famotidine 20 mg tablet (Pepcid) 20 mg PO BID Gastrointestinal issue #60 tabs 04/02/24
lisinopril 5 mg tablet 10 mg (2 x 5 mg) PO DAILY Blood pressure #60 tabs 04/02/24
Home Medication Changes
new
amoxicillin 875 mg-potassium clavulanate 125 mg tablet 1 tab PO BID ent #14 tabs 04/02/24
famotidine 20 mg tablet (Pepcid) 20 mg PO BID Gastrointestinal issue #60 tabs 04/02/24
lisinopril 5 mg tablet 10 mg (2 x 5 mg) PO DAILY Blood pressure #60 tabs 04/02/24
Pending Results: No
== END 2024-04-02 17:33 | disposition home or self-care (01) | DRG 872 ==
LOC: 4 WEST ACU 17:07
PROVIDERS: Emergency Medicine; Physician Assistant Medical; ADMITTING PHYSICIAN Hospitalist; ATTENDING PHYSICIAN Hospitalist; EMERGENCY PHYSICIAN Emergency Medicine; FAMILY PHYSICIAN Student in an Organized Health Care Education/Training Program; OTHER PHYSICIAN Otolaryngology
DX: A41.9 Sepsis, unspecified organism (principal); D84.821 Immunodeficiency due to drugs; J01.90 Acute sinusitis, unspecified; E03.9 Hypothyroidism, unspecified; L40.50 Arthropathic psoriasis, unspecified; G43.909 Migraine, unspecified, not intractable, without status migrainosus; I10 Essential (primary) hypertension; Z79.52 Long term (current) use of systemic steroids; Z11.52 Encounter for screening for COVID-19
CPT/HCPCS: 70486; 71275; 80048; 80053; 83605; 84484; 85025; 85379; 87040; 87502; 87811; 93005; 93306; 96361; 96365; 96366; 99285; Q9967

== ENCOUNTER → 2024-11-20 07:15 | Outpatient (REF) | payer OTHER, SELFPAY | LOC: RAD 07:15 | PROVIDERS: ATTENDING PHYSICIAN Student in an Organized Health Care Education/Training Program | DX: R31.0 Gross hematuria (principal) | CPT/HCPCS: 74178; Q9967 ==